=== PATIENT | male | born 1985 | race Caucasian/White ===

== ENCOUNTER 2023-03-19 04:15 | Emergency (ER) | payer OTHER, SELFPAY ==
--- NOTE | ~2023-03-19 | XR_ITS ---
EXAMINATION: XR HAND, LEFT CLINICAL INFORMATION: Laceration. Rule out foreign body. COMPARISON: None available. TECHNIQUE: PA, lateral, and oblique views of the left hand. FINDINGS: No fracture. Alignment is anatomic. Joint spaces are maintained. There is a soft tissue laceration at the palmar/radial margin of the thenar eminence. No underlying osseous findings. Small foci of subcutaneous gas. No radiodense foreign body. XR/XR hand LT 2V IMPRESSION: Soft tissue laceration at the thenar eminence. No radiodense foreign body. No acute osseous findings.
[2023-03-19 04:16] VITALS: BP 150/102; PULSE 114; RESP 18; TEMP 36.9; O2SAT 100; BMI 29.0
[2023-03-19] MEDS: Acetaminophen 325 MG TABLET 975 MG PO (04:33)
--- NOTE | 2023-03-19 05:42 | ED_ITS ---
HPI - Wound/Laceration General Chief Complaint: Wound/Laceration Stated Complaint: lac on hand Time Seen by Provider: 03/19/23 05:42 Source: patient Mode of arrival: ambulatory Limitations: no limitations History of Present Illness HPI narrative: Patient came with laceration left thenar eminence from circular saw while cutting the wood just prior to arrival no other injuries patient had tetanus shot less than 10 years ago Related Data Previous Rx's Medication Instructions Recorded cephalexin 500 mg capsule 500 mg PO QID 10 days #40 caps 03/19/23 Allergies Allergy/AdvReac Type Severity Reaction Status Date / Time No Known Allergies Allergy Verified 03/19/23 04:30 Review of Systems 2 Review of Systems: Yes all other systems are reviewed and are negative [facility] Social History Social History Alcohol intake: current Alcohol intake frequency: holidays/special occasions only Smoked in Last 30 Days: Yes Use of substances other than those prescribed or required for medical reasons: Yes Substance Use Type: Marijuana Substance Use Type Other:: edibles Advance Directives: No Advance Directives Information Provided: No Physical Exam 2 Vital Signs: Vital Signs: Last Vital Signs Temp 98.4 F 03/19/23 04:16 Pulse 114 H 03/19/23 04:16 Resp 18 03/19/23 04:16 BP 150/102 H 03/19/23 04:16 Pulse Ox 100 03/19/23 04:16 O2 Del Method Room Air 03/19/23 04:16 BMI result Body Mass Index 29.0 Extrem: Hand/finger images: 1. 8 cm long laceration involving the skin and subcutaneous tissue muscles intact neurovascular intact Medications Administered Discontinued Medications Generic Name Dose Route Start Last Admin Trade Name Freq PRN Reason Stop Dose Admin Acetaminophen 975 mg 03/19/23 04:31 03/19/23 04:33 Acetaminophen 325 Mg Tablet PO 03/19/23 04:32 975 mg ONCE ONE Administration Lidocaine HCl 20 ml 03/19/23 05:43 03/19/23 06:35 Lidocaine Hcl 2 % Mpf 5 Ml Vial INFILTRATI 03/19/23 05:44 20 ml ONCE ONE Administration Procedures Laceration Laceration 1: Site: hand Side (If applicable): left Size (cm): 8 Description: linear Depth: simple, single layer Local Anesthetic: lidocaine 2% Amount of anesthesia used (mL): 10 Pre-repair: wound explored and deep structures intact Skin layer closed with: nylon Size (cm): 5-0 Number of sutures: 11 Technique: simple, interrupted Discharge Plan Discharge Clinical Impression: Laceration Patient Disposition: Home, Self-Care Instructions: Laceration (ED) Additional Instructions: Local care as advised Take antibiotic as prescribed avoid infection Suture removal in 10-14 days Prescriptions: New cephalexin 500 mg capsule 500 mg PO QID 10 Days Qty: 40 0RF
--- NOTE | 2023-03-19 06:29 | PC.NURSE ---
at bedside suturing pt laceration.
[2023-03-19] MEDS: Lidocaine HCl 2 % MPF 5 ML VIAL 20 ML INFILTRATI (06:35)
--- NOTE | 2023-03-19 06:35 | PC.NURSE ---
PER PROVIDER VERBAL ORDER PULL 2 LIDOCAINE, ORDER FOR 4. PROVIDER USED 2 AT BEDSIDE AT THIS TIME.
[2023-03-19] MEDS: cephALEXin 500 MG CAPSULE PO (06:54)
[2023-03-19] MEDS: Bacitracin Oint 0.9 GM PACKET 2 APPL TOPICAL (06:54)
== END 2023-03-19 07:00 | disposition home or self-care (01) ==
PROVIDERS: Emergency Provider Internal Medicine
DX: S61.412A Laceration without foreign body of left hand, initial encounter (principal); W31.2XXA Contact with powered woodworking and forming machines, initial encounter; Y93.89 Activity, other specified; Y92.009 Unspecified place in unspecified non-institutional (private) residence as the place of occurrence of the external cause; Y99.9 Unspecified external cause status
CPT/HCPCS: 12004; 73120; 99284